=== PATIENT | female | born 1975 | race Caucasian/White ===

== ENCOUNTER 2023-05-22 21:32 | Emergency (ER) | payer OTHER ==
[2023-05-22] MEDS ORDERED: Morphine 4 MG/ML VIAL ONE (22:57)
[2023-05-22] MEDS ORDERED: Ondansetron ODT 4 MG TAB ONE (22:57)
== END 2023-05-22 23:38 | disposition home or self-care (01) ==
LOC: ERS 21:32
DX: M54.50 Low back pain, unspecified (principal); G89.29 Other chronic pain
CPT/HCPCS: 96372; 99283; J2270; Q0162

== ENCOUNTER 2023-06-26 13:39 | Emergency (ER) | payer OTHER ==
[2023-06-26] MEDS ORDERED: Morphine 4 MG/ML VIAL ONE ×2 (14:06→18:49)
[2023-06-26 14:22] LABS: #Eosinphils 0.3 thou/uL (0.0-0.7); #Monocytes 0.5 thou/uL (0.11-0.59); #Neutrophils 5.4 thou/uL (1.40-6.50); %Basophils 0.4 % (0.0-1.0); %Eosinophils 3.6 % (0.0-10.0); %Lymphocytes 18.1 % (21.0-51.0); %Monocytes 6.5 % (0.0-10.0); Hematocrit 38.8 % (36.0-47.0); Hemoglobin 12.5 g/dL (12.0-16.0); Mean Corpuscular HGB CONC 32.2 g/dL (32.0-36.0); Mean Corpuscular Hemoglobin 25.1 pg (27.0-31.0); Mean Corpuscular Volume 77.9 fl (78.0-98.0); Mean Platelet Volume 9.5 fL (7.4-10.4); Platelet Count 224 10x3/uL (130-400); RBC Distribution Width 15.9 % (11.5-14.5); Red Blood Cell (RBC) Count 4.98 mill/uL (4.20-5.40); White Blood Cell (WBC) Count 7.6 10x3/uL (4.8-10.8)
[2023-06-26] MEDS ORDERED: Magnevist 469MG/ML 20 ML VIAL ONE (14:37)
[2023-06-26 14:44] LABS: ALT (SGPT) 27 U/L (8-55); AST (SGOT) 21 U/L (5-34); Albumin 3.7 g/dL (3.5-5.0); Alkaline Phosphatase 121 U/L (40-110); Anion Gap 16 mmol/L (10-20); BUN (Urea Nitrogen) 14 mg/dL (7.0-18.7); Bilirubin, Total 0.7 mg/dL (0.2-1.2); Calc. Creatinine Clearance 0 mL/min (70-130); Carbon Dioxide 28 mmol/L (22-29); Chloride 99 mmol/L (98-107); Estimated GFR 95; Globulin 2.2 g/dL (2.4-3.5); Glucose 302 mg/dL (70-105); Potassium 4.7 mmol/L (3.5-5.1); Protein, Total 5.9 g/dL (6.0-8.3); Sodium 138 mmol/L (136-145)
[2023-06-26] MEDS ORDERED: LORazepam 2 MG/ML SYR.(CARPUJECT) ONE (15:09)
[2023-06-26] MEDS ORDERED: HYDROmorphone 0.5 MG/0.5 ML SYRINGE ONE ×3 (15:10→16:43)
[2023-06-26] MEDS ORDERED: Vancomycin 1.5 GRAM/300 ML BAG 1.5 GM in Premix Bag 1 BAG IVPB SCH (15:30)
[2023-06-26] MEDS ORDERED: Ondansetron PF 4 MG/2 ML Vial ONE (15:30)
[2023-06-26] MEDS ORDERED: HYDROmorphone 1 MG/ML SYRINGE SLOW IVP SCH (15:30)
[2023-06-26 17:24] LABS: Lactic Acid 1.8 mmol/L (0.5-2.2)
[2023-06-26] MEDS ORDERED: Piperacillin/Tazobactam 4.5 GM VIAL ONE (18:08)
[2023-06-26 18:09] LABS: Bacteria/HPF None Seen HPF (None Seen); Bilirubin Negative (Negative); Blood, Urine Negative (Negative); CAUTI Indications for Culture Dysuria,urgency,freq; Clarity Clear (Clear); Glucose, Urine (Dipstick) Greater than 1000 mg/dL (Negative); Ketone, Urine Negative (Negative); Leukocyte Negative Leu/uL (Negative); Nitrite Negative (Negative); Protein, Urine (Dipstick) Negative (Neg-Trace); RBC/HPF 0-3 HPF (0-3); Squamous Epithelial 0-3 HPF (0-3); Urobilinogen Normal mg/dL (Less than 2); WBC/HPF 0-3 HPF (0-3)
[2023-06-26 18:18] LABS: Urine Culture Reflex No No
[2023-06-26] MEDS ORDERED: Ketorolac Tromethamine 30 MG/ML VIAL ONE (18:50)
== END 2023-06-26 20:10 | disposition home or self-care (01) ==
LOC: ERS 13:39
DX: M54.50 Low back pain, unspecified (principal)
CPT/HCPCS: 36415; 71045; 72158; 80053; 81001; 83605; 85025; 85652; 86140; 87040; 87086; 96365; 96375; 96376; A9579; J1170; J1885; J2060; J2270; J2405; J2543; J3370

== ENCOUNTER 2023-07-02 21:53 | Emergency (ER) | payer OTHER ==
[2023-07-02] MEDS ORDERED: Ketorolac Tromethamine 30 MG/ML VIAL ONE (22:15)
[2023-07-02] MEDS ORDERED: predniSONE 20 MG TAB ONE (22:15)
[2023-07-02] MEDS ORDERED: Cyclobenzaprine 10 MG TAB ONE (22:15)
[2023-07-02] MEDS ORDERED: Morphine 4 MG/ML VIAL ONE (23:16)
== END 2023-07-02 23:32 | disposition home or self-care (01) ==
LOC: ERS 21:53
DX: M54.9 Dorsalgia, unspecified (principal); Z79.84 Long term (current) use of oral hypoglycemic drugs
CPT/HCPCS: 72131; 96372; J1885; J2270; J7512

== ENCOUNTER 2023-07-03 16:02 | Emergency (ER) | payer OTHER ==
[2023-07-03] MEDS ORDERED: Morphine 4 MG/ML VIAL ONE (20:10)
[2023-07-03] MEDS ORDERED: Ketorolac Tromethamine 30 MG/ML VIAL ONE (21:41)
[2023-07-03] MEDS ORDERED: Methocarbamol 500 MG TAB PO SCH (23:15)
== END 2023-07-03 23:31 | disposition home or self-care (01) ==
LOC: ERS 16:02
DX: M54.50 Low back pain, unspecified (principal)
CPT/HCPCS: 96374; 96375; J1885; J2270

== ENCOUNTER 2023-07-16 20:26 | Emergency (ER) | payer OTHER ==
[2023-07-16] MEDS ORDERED: Ondansetron PF 4 MG/2 ML Vial ONE (21:32)
[2023-07-16] MEDS ORDERED: Ketorolac Tromethamine 30 MG/ML VIAL ONE (21:32)
[2023-07-16] MEDS ORDERED: Morphine 4 MG/ML VIAL ONE (21:32)
[2023-07-16] MEDS ORDERED: predniSONE 20 MG TAB ONE (22:31)
[2023-07-16] MEDS ORDERED: Diazepam 5 MG TAB ONE (22:32)
== END 2023-07-16 22:43 | disposition home or self-care (01) ==
LOC: ERS 20:26
DX: M54.9 Dorsalgia, unspecified (principal)
CPT/HCPCS: 96374; 96375; J1885; J2270; J2405; J7512

== ENCOUNTER 2023-07-23 16:40 | Emergency (ER) | payer OTHER ==
[2023-07-23] MEDS ORDERED: Ketorolac Tromethamine 30 MG/ML VIAL ONE (19:51)
[2023-07-23] MEDS ORDERED: Morphine 4 MG/ML VIAL ONE ×2 (19:51→20:49)
[2023-07-23] MEDS ORDERED: Ondansetron PF 4 MG/2 ML Vial ONE (19:51)
== END 2023-07-23 20:58 | disposition home or self-care (01) ==
LOC: ERS 16:40
DX: M54.50 Low back pain, unspecified (principal)
CPT/HCPCS: 72100; 96374; 96375; 96376; J1885; J2270; J2405

== ENCOUNTER 2023-07-24 12:20 | Emergency (ER) | payer OTHER ==
[~2023-07-24 12:20] MED LIST: Magnevist 469MG/ML 20 ML VIAL ONE
[2023-07-24] MEDS ORDERED: LORazepam 2 MG/ML SYR.(CARPUJECT) ONE (13:27)
[2023-07-24] MEDS ORDERED: Morphine 4 MG/ML VIAL ONE ×3 (13:27→17:19)
[2023-07-24] MEDS ORDERED: Ketorolac Tromethamine 30 MG/ML VIAL ONE (13:27)
[2023-07-24 13:36] LABS: Bacteria/HPF None Seen HPF (None Seen); Bilirubin Negative (Negative); Blood, Urine Negative (Negative); CAUTI Indications for Culture Pelvic or flank pain; Clarity Clear (Clear); Glucose, Urine (Dipstick) Greater than 1000 mg/dL (Negative); Ketone, Urine Negative (Negative); Leukocyte Negative Leu/uL (Negative); Nitrite Negative (Negative); Protein, Urine (Dipstick) Negative (Neg-Trace); RBC/HPF 0-3 HPF (0-3); Specific Gravity, Urine 1.034 (1.002-1.036); Squamous Epithelial 0-3 HPF (0-3); Urobilinogen Normal mg/dL (Less than 2); WBC/HPF 0-3 HPF (0-3)
[2023-07-24 13:43] LABS: Urine Culture Reflex No No
[2023-07-24 13:54] LABS: ALT (SGPT) 29 U/L (8-55); AST (SGOT) 18 U/L (5-34); Albumin 3.4 g/dL (3.5-5.0); Alkaline Phosphatase 106 U/L (40-110); Anion Gap 14 mmol/L (10-20); BUN (Urea Nitrogen) 17 mg/dL (7.0-18.7); Bilirubin, Total 0.9 mg/dL (0.2-1.2); Calc. Creatinine Clearance 0 mL/min (70-130); Calcium 8.5 mg/dL (7.8-10.44); Carbon Dioxide 24 mmol/L (22-29); Chloride 103 mmol/L (98-107); Estimated GFR 89; Globulin 1.9 g/dL (2.4-3.5); Potassium 4.1 mmol/L (3.5-5.1); Protein, Total 5.3 g/dL (6.0-8.3); Sodium 137 mmol/L (136-145)
[2023-07-24 13:57] LABS: Glucose 401 mg/dL (70-105)
[2023-07-24] MEDS ORDERED: Ondansetron PF 4 MG/2 ML Vial ONE ×2 (14:01→18:37)
[2023-07-24 14:40] LABS: #Eosinphils 0.2 thou/uL (0.0-0.7); #Monocytes 0.5 thou/uL (0.11-0.59); #Neutrophils 4.9 thou/uL (1.40-6.50); %Basophils 0.1 % (0.0-1.0); %Eosinophils 3.5 % (0.0-10.0); %Lymphocytes 17.4 % (21.0-51.0); %Monocytes 7.2 % (0.0-10.0); %Neutrophils 70.2 % (42.0-75.0); Hematocrit 37.2 % (36.0-47.0); Hemoglobin 11.8 g/dL (12.0-16.0); Mean Corpuscular HGB CONC 31.7 g/dL (32.0-36.0); Mean Corpuscular Hemoglobin 25.9 pg (27.0-31.0); Mean Corpuscular Volume 81.6 fl (78.0-98.0); Mean Platelet Volume 9.8 fL (7.4-10.4); Platelet Count 183 10x3/uL (130-400); RBC Distribution Width 15.5 % (11.5-14.5); Red Blood Cell (RBC) Count 4.56 mill/uL (4.20-5.40); White Blood Cell (WBC) Count 6.9 10x3/uL (4.8-10.8)
[2023-07-24] MEDS ORDERED: Midazolam HCl 2 mg/2 ml Vial ONE (16:35)
== END 2023-07-24 20:26 | disposition left against medical advice (07) ==
LOC: ERS 12:20
DX: G89.29 Other chronic pain (principal); M54.9 Dorsalgia, unspecified; Z76.5 Malingerer [conscious simulation]
CPT/HCPCS: 36415; 72158; 80053; 81001; 83605; 85025; 86140; 87040; 96374; 96375; 96376; A9579; J1885; J2060; J2250; J2270; J2405